=== PATIENT | male | born 1955 | race Caucasian/White ===

== ENCOUNTER 2021-08-08 09:32 | Emergency (ER) | payer MEDICARE, OTHER ==
[~2021-08-08] VITALS: Ht 182.9 cm; Wt 125.0 kg
[~2021-08-08 09:32] MED LIST: AMOXICILLIN/CL875 MG PO; AUGMENTIN875TAB OR; BACITRACIN500 MG/GM OD; CIPROFLOXACN500 MG PO; CLARITIN10 M1 PO; HYDROCHLOROT12.5 MG PO; LISINOPRIL10 MG; LOSARTAN POT25 MG PO; MEDDOSEPAK OR; MEDDOSEPAK PO; NAPROSYN500 MG PO; NAPROXEN500 MG PO; SINGULAIR PO
[2021-08-08] MEDS ORDERED: ZPAK PO (10:19)
[2021-08-08] MEDS ORDERED: HYCODAN1 ML PO (10:19)
[2021-08-08 10:32] VITALS: BP 135/96
== END 2021-08-08 10:32 | disposition home or self-care (01) ==
LOC: ED 09:32
DX: J40 Bronchitis, not specified as acute or chronic (principal); F17.210 Nicotine dependence, cigarettes, uncomplicated; Z20.822 Contact with and (suspected) exposure to COVID-19